=== PATIENT | female | born 1975 | race Caucasian/White ===

== ENCOUNTER 2022-04-25 17:21 | Inpatient (IN) | payer BC ==
[2022-04-25] MEDS ORDERED: Piperacillin/Tazobactam 3.375 GM in Sodium Chloride 0.9% 50 ML IV STA (17:44)
[2022-04-25] MEDS ORDERED: Sodium Chloride 0.9% 1,000 ML IV STA ×2 (17:45→21:38)
[2022-04-25] MEDS ORDERED: VANCOmycin 1.75 GM/350 ML 1.75 GM in Premix Bag 1 BAG IV ONE (18:30)
[2022-04-25 18:44] LABS: CARBON DIOXIDE,CO2 27.3 mmol/L (21.0-32.0); POTASSIUM,K 3.8 mmol/L (3.5-5.1)
[2022-04-25 18:59] LABS: CORONAVIRUS COVID-19 NAA NEGATIVE (NEGATIVE); INFLUENZA A NAA NEGATIVE (NEGATIVE); INFLUENZA B NAA NEGATIVE (NEGATIVE)
[2022-04-25 19:14] LABS: LIPASE 77 U/L (73-393)
[2022-04-25] MEDS ORDERED: Iopamidol 755 MG/ML 500 ML Multipack Bottle IVPUSH STA (19:19)
[2022-04-25 20:10] LABS: HIV12 AG/AB 4TH GEN W/REFLEX < 0.1 INDEX (<1.0)
[2022-04-25] MEDS ORDERED: metroNIDAZOLE 250 MG Tab PO STA (21:10)
[2022-04-25 21:18] LABS: C. TRACHOMATIS BY PCR NOT DETECTED; N. GONORRHOEAE BY PCR NOT DETECTED
[2022-04-25] MEDS ORDERED: Sodium Chloride 0.9% 1,000 ML IV ONE (23:11)
[2022-04-25] MEDS ORDERED: Doxycycline 100 MG in Sodium Chloride 0.9% 100 ML IV SCH (23:45)
[2022-04-26] MEDS: Heparin Sodium 5,000 Units/ML Vial SUBCUT SCH ×3 (00:41→15:51)
[2022-04-26] MEDS: Sodium Chloride 0.9% 1,000 ML IV SCH ×3 (00:41→19:02)
[2022-04-26] MEDS: cefTRIAXone 1 GM in Sodium Chloride 0.9% 50 ML IV SCH (00:41)
[2022-04-26] MEDS: Doxycycline 100 MG in Sodium Chloride 0.9% 100 ML IV SCH ×2 (01:30→13:12)
[2022-04-26] MEDS ORDERED: metroNIDAZOLE/Normal Saline 500 MG in Premix Bag 1 BAG IV SCH (06:00)
[2022-04-26 06:24] LABS: CARBON DIOXIDE,CO2 23.6 mmol/L (21.0-32.0)
[2022-04-26] MEDS ORDERED: Levothyroxine 50 MCG Tab PO SCH (09:00)
[2022-04-26] MEDS ORDERED: Sodium Chloride 0.9% 1,000 ML IV SCH (09:15)
[2022-04-26] MEDS: Levothyroxine 125 MCG Tab PO SCH (10:35)
[2022-04-26] MEDS: Acetaminophen 325 MG Tab PO PRN (17:50)
[2022-04-26] MEDS: metroNIDAZOLE/Normal Saline 500 MG in Premix Bag 1 BAG IV SCH (17:51)
[2022-04-27] MEDS: Heparin Sodium 5,000 Units/ML Vial SUBCUT SCH ×4 (00:06→23:20)
[2022-04-27] MEDS: cefTRIAXone 1 GM in Sodium Chloride 0.9% 50 ML IV SCH ×2 (00:06→23:21)
[2022-04-27] MEDS: Doxycycline 100 MG in Sodium Chloride 0.9% 100 ML IV SCH ×2 (01:14→12:37)
[2022-04-27] MEDS: Sodium Chloride 0.9% 1,000 ML IV SCH ×3 (03:44→23:19)
[2022-04-27] MEDS: metroNIDAZOLE/Normal Saline 500 MG in Premix Bag 1 BAG IV SCH ×2 (05:39→17:19)
[2022-04-27] MEDS: Levothyroxine 125 MCG Tab PO SCH (06:52)
[2022-04-28] MEDS: Doxycycline 100 MG in Sodium Chloride 0.9% 100 ML IV SCH (00:29)
[2022-04-28 06:15] LABS: CARBON DIOXIDE,CO2 23.7 mmol/L (21.0-32.0); POTASSIUM,K 3.7 mmol/L (3.5-5.1)
[2022-04-28] MEDS: Levothyroxine 125 MCG Tab PO SCH ×2 (06:18→06:32)
[2022-04-28] MEDS: metroNIDAZOLE/Normal Saline 500 MG in Premix Bag 1 BAG IV SCH (06:18)
[2022-04-28] MEDS: Heparin Sodium 5,000 Units/ML Vial SUBCUT SCH (08:55)
[2022-04-28] MEDS: Acetaminophen 325 MG Tab PO PRN (08:56)
[2022-04-28] MEDS: Sodium Chloride 0.9% 1,000 ML IV SCH (09:15)
[2022-04-28 11:35] VITALS: BP 98/70; PULSE 70
== END 2022-04-28 12:00 | disposition home or self-care (01) | DRG 531 ==
LOC: MW.ED 17:21 → MW.MS 23:30
PROVIDERS: ADMIT Internal Medicine; ATTEND Internal Medicine
DX: N70.93 Salpingitis and oophoritis, unspecified (principal); E03.9 Hypothyroidism, unspecified; Z20.822 Contact with and (suspected) exposure to COVID-19; Z79.890 Hormone replacement therapy; Z79.899 Other long term (current) drug therapy
CPT/HCPCS: 0240U; 36415; 74177; 74177-26; 80048; 80053; 80202; 81001; 81025; 82947; 83605; 83690; 83735; 85025; 85652; 86140; 86304; 87040; 87086; 87389; 87480; 87491; 87510; 87591; 87660; 93005; 93010; 96361; 96365; 96366; 96367; 99221; 99231; 99238; 99284; 99285-25; A9270-GY; J0696; J1644; J2543; J3370; J3490; J7030; J7050; Q9967

== ENCOUNTER 2024-08-31 23:55 | Emergency (ER) | payer BC ==
[2024-09-01] MEDS ORDERED: Sodium Chloride 0.9% 20 ML SDV IV PRN (00:17)
[2024-09-01] MEDS ORDERED: Sodium Chloride 0.9% 10 ML Syringe FLUSH PRN (00:17)
[2024-09-01] MEDS ORDERED: Sodium Chloride 0.9% 2.5 ML Syringe FLUSH PRN (00:17)
[2024-09-01] MEDS ORDERED: Heparin Sodium 5,000 Units/ML Vial IVPUSH ONE ×2 (00:18→00:45)
[2024-09-01 00:24] LABS: HEMATOCRIT 46.4 % (37.0-47.0); HEMOGLOBIN 16.3 g/dL (12.0-16.0); MEAN CORPUSCULAR HGB CONC 35.1 g/dL (32.0-36.0); MEAN CORPUSCULAR VOLUME 96.7 fL (83.0-99.0); MEAN PLATELET VOLUME 9.4 fL (9.4-12.3); PLATELET COUNT,PLT 374 K/uL (150-400)
[2024-09-01] MEDS: Aspirin 81 MG Tab.Chew PO ONE (00:25)
[2024-09-01] MEDS: Clopidogrel 75 MG Tab PO ONE (00:26)
[2024-09-01] MEDS ORDERED: Nitroglycerin/D5W 25 MG/250 ML BOTTLE IV SCH (00:30)
[2024-09-01] MEDS: Nitroglycerin 0.4 MG Tab.SL SL PRN (00:30)
[2024-09-01 00:39] LABS: INR 1.03 (0.86-1.11); PTT,PARTIAL THROMBOPLSTIN TIME 25.4 SEC (23.9-30.7)
[2024-09-01 00:43] VITALS: PULSE 66
[2024-09-01] MEDS: Heparin Sodium 5,000 Units/ML Vial IVPUSH ONE (00:43)
[2024-09-01] MEDS: Heparin Sodium/0.45% NaCl 25,000 UNITS/250 ML BAG IV SCH (00:44)
[2024-09-01 00:48] VITALS: BP 97/67
[2024-09-01 00:53] LABS: CALCIUM 9.4 mg/dL (8.5-10.1); CARBON DIOXIDE,CO2 25.1 mmol/L (21.0-32.0); CREATININE 0.9 mg/dL (0.6-1.0); EST CRCL DRUG DOSING (CG) 61.86 mL/min; MAGNESIUM 1.9 mg/dL (1.8-2.4); POTASSIUM,K 3.5 mmol/L (3.5-5.1)
[2024-09-01 01:32] LABS: SEG NEUTROPHILS ABSOLUTE MAN 9.86 K/uL (1.80-7.70); SEG NEUTROPHILS PERCENT MAN 45 % (41-71)
[2024-09-01 01:33] LABS: BASOPHILS ABSOLUTE MAN 0.22 K/uL (0.00-0.20); BASOPHILS PERCENT MAN 1 % (0-1); EOSINOPHILS ABSOLUTE MAN 0.44 K/uL (0.00-0.45); EOSINOPHILS PERCENT MAN 2 % (0-6); LYMPHOCYTES % ATYPICAL MANUAL 5; LYMPHOCYTES ABSOLUTE MAN 8.98 K/uL (1.00-4.80); LYMPHOCYTES PERCENT MAN 41 % (24-44); MONOCYTES ABSOLUTE MAN 1.31 K/uL (0.00-0.80); MONOCYTES PERCENT MAN 6 % (0-8)
== END 2024-09-01 01:05 ==
LOC: MW.ED 23:55
DX: I21.29 ST elevation (STEMI) myocardial infarction involving other sites (principal); E78.00 Pure hypercholesterolemia, unspecified; E03.9 Hypothyroidism, unspecified; E66.9 Obesity, unspecified; Z68.34 Body mass index [BMI] 34.0-34.9, adult; Z79.890 Hormone replacement therapy; Z79.899 Other long term (current) drug therapy
CPT/HCPCS: 36415; 80048; 83735; 84484; 85025; 85610; 85730; 93005; 96365; 99285; A9270; J1644; 93010